=== PATIENT | male | born 1955 | race Caucasian/White ===

== ENCOUNTER → 2016-07-21 | Outpatient (REF) ==
[~2016-07-21] MED LIST: AMOXICILLIN 8751 TAB PO; EX-LAX15 MG; NORCO 325 MG-51 TAB PO; NORVASC 10MG10 MG PO; PRINVIL PO; PROCTOFOAM-HC 11 FOA RC
== END ==
LOC: ZLAB.WCH 11:59
DX: Z01.89 Encounter for other specified special examinations (principal)
CPT/HCPCS: G0103

== ENCOUNTER → 2017-04-13 | Outpatient (REF) | LOC: ZLAB.WCH 18:12 | DX: Z01.89 Encounter for other specified special examinations (principal) ==

== ENCOUNTER → 2017-04-26 | Outpatient (REF) ==
[2017-04-26 18:46] LABS: C-REACTIVE PROTEIN 5.9 mg/dL (0.0-0.9)
[2017-04-26 19:30] LABS: PSA-TOTAL 2.17 ng/mL (0-4)
== END ==
LOC: ZLAB.WCH 18:07
PROVIDERS: Nurse Practitioner Family
DX: Z01.89 Encounter for other specified special examinations (principal)
CPT/HCPCS: G0103

== ENCOUNTER → 2017-11-03 | Outpatient (REF) ==
[2017-11-03 18:12] LABS: AMMONIA < 9 umol/L (11-35)
== END ==
LOC: ZLAB.WCH 17:45
PROVIDERS: Internal Medicine
DX: Z01.89 Encounter for other specified special examinations (principal)

== ENCOUNTER → 2017-12-26 | Outpatient (CLI) | payer OTHER ==
[2005-11-15 13:42] VITALS: TEMP 97.1
[2017-12-26 15:39] LABS: BASO # 0.2 (0.0-0.2); BASO % 1.6 % (0.0-2.0); EOS # 0.1 (0.0-0.7); EOS % 0.4 % (0-4.0); GRAN # 8.7 (1.4-6.5); GRAN % 74.1 % (42.2-75.2); HEMATOCRIT 42.5 % (42.0-52.0); HEMOGLOBIN 14.7 g/dl (13.5-18.0); LYMPH % 8.6 % (20.0-51.0); MEAN CELL VOLUME 94 fl (80.0-100.0); MEAN CORPUSCULAR HEMOGLOBIN 33 pg (27.0-31.0); MEAN CORPUSCULAR HGB CONC 35 g/dl (33.0-37.0); MEAN PLATELET VOLUME 9.5 fl (7.4-10.4); MONO # 1.8 (0.1-0.6); MONO % 14.9 % (1.7-9.3); PLATELET COUNT 352 K/mm3 (130-400); REDCELL DISTRIBUTION WIDTH-CV 14.2 % (11.5-14.5)
[2017-12-26 15:43] LABS: INR 2.4 (0.8-3.0); PROTHROMBIN TIME 26.9 SECONDS (9.7-12.8)
[2017-12-26 15:53] LABS: ALBUMIN 3.9 gm/dL (3.5-5.0); BILIRUBIN,TOTAL 0.8 mg/dL (0.0-1.0); CALCIUM 9.7 mg/dL (8.4-10.2); CREATININE, serum 0.82 mg/dL (0.66-1.25); POTASSIUM 5.1 mmol/L (3.4-5.0)
== END ==
LOC: COL.LAB 15:17
PROVIDERS: Internal Medicine Gastroenterology
DX: I85.00 Esophageal varices without bleeding (principal)

== ENCOUNTER 2018-01-17 09:11 | Day surgery (SDC) | payer OTHER ==
[~2018-01-17] VITALS: Ht 180.3 cm; Wt 76.4 kg
[~2018-01-17 09:11] MED LIST changes: -NORVASC 10MG10 MG PO; +NORVASC 5MG5 MG/TAB PO
[2018-01-17] MEDS ORDERED: ULTRAM 50MG TAB50 MG PO (09:43)
[2018-01-17] MEDS ORDERED: ALDACTONE 100M100 MG PO (09:44)
[2018-01-17] MEDS ORDERED: XARELTO20 MG PO (09:44)
[2018-01-17] MEDS ORDERED: LASIX 20MG TABL20 MG PO (09:45)
[2018-01-17] MEDS ORDERED: FLOMAX 0.40.4 MG/CAP PO (09:46)
[2018-01-17] MEDS ORDERED: FOLIC ACID 11 MG/TA1 PO (09:46)
[2018-01-17] MEDS ORDERED: B COMPLEX #11 TAB PO (09:47)
[2018-01-17] MEDS ORDERED: MULTI VITAMINS1 TAB PO (09:47)
[2018-01-17 09:56] VITALS: BP 142/77; PULSE 79; TEMP 97.9
[2018-01-17 11:15] VITALS: BP 102/73; PULSE 68; TEMP 97.5
[2018-01-17 11:30] VITALS: BP 122/78; PULSE 69
[2018-01-17 11:45] VITALS: BP 124/57; PULSE 68
[2018-01-17 12:00] VITALS: BP 126/74; PULSE 68
== END 2018-01-17 12:15 | disposition home or self-care (01) ==
LOC: SDCO 09:11
DX: Z12.11 Encounter for screening for malignant neoplasm of colon (principal); Z80.0 Family history of malignant neoplasm of digestive organs; D12.5 Benign neoplasm of sigmoid colon; K57.30 Diverticulosis of large intestine without perforation or abscess without bleeding; K64.0 First degree hemorrhoids; I85.00 Esophageal varices without bleeding; K29.30 Chronic superficial gastritis without bleeding; K22.2 Esophageal obstruction; K21.9 Gastro-esophageal reflux disease without esophagitis; K44.9 Diaphragmatic hernia without obstruction or gangrene; K74.60 Unspecified cirrhosis of liver; K72.90 Hepatic failure, unspecified without coma; Z86.718 Personal history of other venous thrombosis and embolism; Z79.01 Long term (current) use of anticoagulants; Z79.899 Other long term (current) drug therapy; E78.00 Pure hypercholesterolemia, unspecified; Z72.89 Other problems related to lifestyle; Z90.81 Acquired absence of spleen; G62.9 Polyneuropathy, unspecified
CPT/HCPCS: J2704; J7030

== ENCOUNTER → 2018-07-07 | Outpatient (CLI) | payer OTHER ==
[~2018-07-07] MED LIST changes: +ALDACTONE 100M100 MG PO; +B COMPLEX #11 TAB PO; +FLOMAX 0.40.4 MG/CAP PO; +FOLIC ACID 11 MG/TA1 PO; +LASIX 20MG TABL20 MG PO; +MULTI VITAMINS1 TAB PO; +ULTRAM 50MG TAB50 MG PO; +XARELTO20 MG PO
[2018-07-07 09:00] LABS: BASO # 0.1 (0.0-0.2); BASO % 0.7 % (0.0-2.0); EOS # 0.1 (0.0-0.7); EOS % 1.1 % (0-4.0); GRAN # 8.1 (1.4-6.5); GRAN % 72.1 % (42.2-75.2); HEMOGLOBIN 12.5 g/dl (13.5-18.0); LYMPH # 1.8 (1.2-3.4); MEAN CELL VOLUME 87 fl (80.0-100.0); MEAN CORPUSCULAR HEMOGLOBIN 32 pg (27.0-31.0); MEAN CORPUSCULAR HGB CONC 37 g/dl (33.0-37.0); MEAN PLATELET VOLUME 10.4 fl (7.4-10.4); MONO # 1.1 (0.1-0.6); MONO % 9.8 % (1.7-9.3); PLATELET COUNT 251 K/mm3 (130-400); RED BLOOD COUNT 3.93 M/mm3 (4.20-5.60); REDCELL DISTRIBUTION WIDTH-CV 14.6 % (11.5-14.5)
[2018-07-07 09:07] LABS: BILIRUBIN,TOTAL 3.6 mg/dL (0.0-1.0); CALCIUM 8.3 mg/dL (8.4-10.2); CREATININE, serum 1.18 (0.66-1.25); POTASSIUM 3.9 mmol/L (3.4-5.0); TOTAL PROTEIN 6.9 gm/dL (6.4-8.2)
[2018-07-07 09:25] LABS: INR 3.6 (0.8-3.0); PROTHROMBIN TIME 41.5 SECONDS (9.7-12.8)
== END ==
LOC: COL.RAD 07-04 08:15 → COL.LAB 07:58
PROVIDERS: Internal Medicine Gastroenterology
DX: K70.31 Alcoholic cirrhosis of liver with ascites (principal)

== ENCOUNTER 2019-03-27 08:05 | Day surgery (SDC) | payer OTHER ==
[~2019-03-27] VITALS: Ht 182.9 cm; Wt 77.6 kg
[2019-03-27 08:42] VITALS: BP 127/66; PULSE 85; TEMP 97.7
[2019-03-27] MEDS ORDERED: LASIX 40MG TABL40 MG PO (08:59)
[2019-03-27] MEDS ORDERED: BENADRYL25 M2 PO (09:01)
[2019-03-27] MEDS ORDERED: PRILOSEC 20MG20 MG PO (09:02)
[2019-03-27] MEDS ORDERED: MELATONIN5 M1 SL (09:02)
[2019-03-27] MEDS ORDERED: MILK THISTLE PO (09:05)
--- NOTE | 2019-03-27 09:55 | NUR ---
Dr. Posada here and talks with the patient and procedure will be cancelled to due elevated alcohol level.
--- NOTE | 2019-03-27 10:00 | NUR ---
IV discontinued and patient dresses self. Ambulatory to the bathroom. Gait steady.
--- NOTE | 2019-03-27 10:10 | NUR ---
Voice mail left on spouse's cell phone that patient is ready to be picked up and that the procedure was cancelled.
--- NOTE | 2019-03-27 10:35 | NUR ---
Spouse here and patient dismissed ambulatory to home driven by spouse.
== END 2019-03-27 10:35 | disposition home or self-care (01) ==
LOC: SDCO 08:05
DX: K74.60 Unspecified cirrhosis of liver (principal); I85.10 Secondary esophageal varices without bleeding; Z86.010 Personal history of colon polyps; Z79.01 Long term (current) use of anticoagulants
CPT/HCPCS: J2704; J7030

== ENCOUNTER 2021-08-24 06:36 | Day surgery (SDC) | payer OTHER, MEDICARE ==
[~2021-08-24] VITALS: Ht 180.3 cm; Wt 88.4 kg
[~2021-08-24 06:36] MED LIST changes: +BENADRYL25 M2 PO; +LASIX 40MG TABL40 MG PO; +MELATONIN5 M1 SL; +MILK THISTLE PO; +NORVASC 10MG10 MG PO; -NORVASC 5MG5 MG/TAB PO; +PRILOSEC 20MG20 MG PO
[2021-08-24 07:25] VITALS: BP 137/63; PULSE 76; TEMP 98.2
[2021-08-24] MEDS ORDERED: FOLIC ACID 11 MG/TA1 PO (07:33)
[2021-08-24] MEDS ORDERED: NATURE'S BLEND100 M2 PO (07:33)
[2021-08-24] MEDS ORDERED: NATURAL IRON65 MG PO (07:34)
[2021-08-24] MEDS ORDERED: ATHLETE'S FOOT1% TP (07:34)
[2021-08-24 08:35] VITALS: BP 116/62; PULSE 58; TEMP 97.4
[2021-08-24 08:45] VITALS: BP 124/60; PULSE 59
[2021-08-24 09:00] VITALS: BP 132/67; PULSE 67
--- NOTE | 2021-08-24 09:25 | NUR ---
0859-Pt returned via cart to [facility] with SAI Bliss and bedside report obtained. VSS-see flowsheet. 0925-Pts present. Pt tolerated oral intake. VS remain stable. IV removed, pressure dressing applied. Pt dressed with wifes assistance. Discharge teaching completed, pt and pts verbalized understanding. Pt taken via wheelchair to private vehicle for dc home with driving.
== END 2021-08-24 09:25 | disposition home or self-care (01) ==
LOC: SDCO 06:36
DX: D12.3 Benign neoplasm of transverse colon (principal); K29.30 Chronic superficial gastritis without bleeding; K70.30 Alcoholic cirrhosis of liver without ascites; K44.9 Diaphragmatic hernia without obstruction or gangrene; K57.30 Diverticulosis of large intestine without perforation or abscess without bleeding; D50.9 Iron deficiency anemia, unspecified; I85.00 Esophageal varices without bleeding; Z79.899 Other long term (current) drug therapy; Z80.0 Family history of malignant neoplasm of digestive organs
CPT/HCPCS: J2704

== ENCOUNTER 2021-12-09 00:59 | Inpatient (IN) | payer OTHER, MEDICARE ==
[2021-12-09] VITALS (1020 sets, daily range): BP systolic 98–116; BP diastolic 51–66; PULSE 66–92; TEMP 98–98.9; O2SAT 53–100
[~2021-12-09] VITALS: Ht 180.3 cm; Wt 89.7 kg
[~2021-12-09 00:59] MED LIST changes: +ATHLETE'S FOOT1% TP; +NATURAL IRON65 MG PO; +NATURE'S BLEND100 M2 PO
[2021-12-09 01:31] LABS: HEMOGLOBIN 11.8 g/dl (13.5-18.0); MEAN CELL VOLUME 93 fl (80.0-100.0); MEAN CORPUSCULAR HEMOGLOBIN 31 pg (27-31); MEAN CORPUSCULAR HGB CONC 33 g/dl (33.0-37.0); MEAN PLATELET VOLUME 10.6 fl (7.4-10.4); PLATELET COUNT 372 K/mm3 (130-400); RED BLOOD COUNT 3.85 M/mm3 (4.20-5.60); REDCELL DISTRIBUTION WIDTH-CV 17.3 % (11.5-14.5)
[2021-12-09 01:36] LABS: HEMATOCRIT 35.8 % (42.0-52.0)
[2021-12-09 01:39] LABS: INR 1.6 (0.8-3.0)
[2021-12-09 01:41] LABS: PARTIAL THROMBOPLASTIN TIME 29.8 SECONDS (26.0-37.0)
[2021-12-09 01:49] LABS: ALBUMIN 2.8 gm/dL (3.4-4.8); C-REACTIVE PROTEIN 0.68 mg/dL (0.00-0.50); CALCIUM 11.3 mg/dL (8.4-10.2); CREATININE, serum 1.82 mg/dL (0.72-1.25); POTASSIUM 3.3 mmol/L (3.5-4.5); TOTAL PROTEIN 7.8 gm/dL (6.2-8.1)
[2021-12-09 01:56] LABS: ANISOCYTOSIS 1+; BAND 4 % (0-10); LYMPHOCYTE 9 % (20.0-51.0); NEUTROPHILS 79 % (42.0-75.2); PLATELET ESTIMATE NORMAL (NORMAL); TARGET CELLS 1+
[2021-12-09 01:57] LABS: HYPOCHROMIA 1+
[2021-12-09 01:58] LABS: BILIRUBIN,TOTAL 1.4 mg/dL (0.2-1.2)
--- NOTE | 2021-12-09 07:15 | NUR ---
Resting in bed; Reports feeling "much better today". VS stable and call light left within reach.
[2021-12-09 07:59] LABS: HEMOGLOBIN 8.6 g/dl (13.5-18.0)
[2021-12-09 08:06] LABS: CALCIUM 8.7 mg/dL (8.4-10.2); CREATININE, serum 1.58 mg/dL (0.72-1.25); POTASSIUM 4.2 mmol/L (3.5-4.5)
[2021-12-09 14:22] LABS: HEMATOCRIT 25.7 % (42.0-52.0); HEMOGLOBIN 8.4 g/dl (13.5-18.0)
--- NOTE | 2021-12-09 16:26 | NUR ---
Resting in bed with eyes shut; no concerns or complaints at this time.
--- NOTE | 2021-12-09 20:28 | NUR ---
ASSESSMENT COMPLETE AND CHARTED. PATIENT GIVEN PRN TRAMADOL FOR PAIN. DENIES OTHER NEEDS.CALL LIGHT IN REACH.
[2021-12-10] VITALS (1060 sets, daily range): BP systolic 113–135; BP diastolic 61–76; PULSE 60–67; TEMP 97.8–98.6; O2SAT 56–100
[2021-12-10 05:32] LABS: MEAN CELL VOLUME 95 fl (80.0-100.0); MEAN CORPUSCULAR HGB CONC 32 g/dl (33.0-37.0); MEAN PLATELET VOLUME 10.8 fl (7.4-10.4); RED BLOOD COUNT 2.59 M/mm3 (4.20-5.60); REDCELL DISTRIBUTION WIDTH-CV 17.9 % (11.5-14.5)
[2021-12-10 05:36] LABS: HEMATOCRIT 24.7 % (42.0-52.0); HEMOGLOBIN 7.9 g/dl (13.5-18.0); MEAN CORPUSCULAR HEMOGLOBIN 31 pg (27-31); PLATELET COUNT 256 K/mm3 (130-400)
--- NOTE | 2021-12-10 05:36 | NUR ---
PATIENT HAD UNEVENTFUL NIGHT. GIVEN TRAMADOL FOR FEET PAIN DURING NIGHT. DENIES OTHER NEEDS THIS AM. CALL LIGHT IN REACH.
[2021-12-10 05:52] LABS: CALCIUM 7.8 mg/dL (8.4-10.2); CREATININE, serum 1.11 mg/dL (0.72-1.25)
[2021-12-10 06:05] LABS: ANISOCYTOSIS 1+; BAND 2 % (0-10); BASOPHIL 2 % (0-2); EOSINOPHIL 3 % (0-4); LYMPHOCYTE 10 % (20.0-51.0); METAMYELOCYTE 1 % (0-0); NEUTROPHILS 64 % (42.0-75.2); PLATELET ESTIMATE NORMAL (NORMAL)
--- NOTE | 2021-12-10 07:18 | NUR ---
Report given to Ritika GIBBS
--- NOTE | 2021-12-10 07:41 | NUR ---
PT LYING IN BED, AWAKE AT SHIFT CHANGE. DENIES ANY NEEDS AT THIS TIME. NITRO GTT RUNNING PER JUN AND REPORT. CALL LIGHT WITHIN REACH.
--- NOTE | 2021-12-10 07:44 | NUR ---
PT LYING IN BED AT SHIFT CHANGE, ON , NEW BAG HUNG WITH NIGHTSHIFT. PT DENIES NEEDS AT THIS TIME. ASKED WHEN PHYSICIAN WOULD ROUND BUT NO FURTHER QUESTIONS. CALL LIGHT WITHIN REACH.
--- NOTE | 2021-12-10 10:03 | NUR ---
Initial visit; Patient thanked Clinical Pharmacologist for looking in on him and offering God's blessings for healing.
[2021-12-10 18:23] LABS: HEMATOCRIT 26.4 % (42.0-52.0); HEMOGLOBIN 8.6 g/dl (13.5-18.0)
--- NOTE | 2021-12-10 19:00 | NUR ---
PT ASSESSMENT COMPLETED. VSS. OCTREOTIDE RUNNING AT 50.1 AND REMAINS UNCHANGED AT SHIFT CHANGE. PT IS ALERT AND ORIENTED. PT VOIDED USING THE URINAL. DURING THIS TIME PT ACCIDENTLY PULLED IV OUT. OCTREOTIDE PUT ON STANDBY AND NEW SITE WILL BE ACCESSED. CALL LIGHT WITHIN REACH.
--- NOTE | 2021-12-10 20:30 | NUR ---
ATTEMPTED IV ACCESS ONE TIME. SCRUB TECHNICIAN ATTEMPTED ACCESS ONE TIME. CALLED CASING TESTER WHO ATTEMPTED ACCESS ONE TIME AND SUCCESSFULLY ACCESSED ON THE SECOND ATTEMPT. OCTREOTIDE RESUMED AT THIS TIME.
[2021-12-11] VITALS (347 sets, daily range): BP systolic 121–145; BP diastolic 63–98; PULSE 61–81; TEMP 98–98.5; O2SAT 75–100
--- NOTE | 2021-12-11 02:15 | NUR ---
PT GOT UP TO USE THE URINAL AND ACCIDENTALLY PULLED HIS IV OUT. PLACED A NEW IV LINE IN THE RIGHT WRIST. IV POLE MOVED TO PREVENT PULLING ON THE LINE.
--- NOTE | 2021-12-11 06:21 | NUR ---
DURING SHIFT PT HAD MISSED USING THE URINAL. URINE SATURATED HIS SWEAT PANTS HE HAD ON. PT ITEMS ARE IN A BAG - SWEAT PANTS, SOCKS, UNDERWEAR IN THE ROOM.
[2021-12-11 07:28] LABS: MEAN CELL VOLUME 95 fl (80.0-100.0); MEAN CORPUSCULAR HGB CONC 33 g/dl (33.0-37.0); MEAN PLATELET VOLUME 10.8 fl (7.4-10.4); PLATELET COUNT 269 K/mm3 (130-400); RED BLOOD COUNT 2.79 M/mm3 (4.20-5.60); REDCELL DISTRIBUTION WIDTH-CV 17.8 % (11.5-14.5)
[2021-12-11 07:37] LABS: HEMATOCRIT 26.4 % (42.0-52.0); HEMOGLOBIN 8.6 g/dl (13.5-18.0); MEAN CORPUSCULAR HEMOGLOBIN 31 pg (27-31)
--- NOTE | 2021-12-11 07:45 | NUR ---
PATIENT AWAKE AND RESTING IN BED. DENIES ANY CONCERNS AT THIS TIME. PATIENT IS ALERT AND ORIENTED HOWEVER IS FORGETFUL AT TIMES. CALL LIGHT WITHIN REACH AND REMINDED PATIENT TO PRESS CALL LIGHT WHEN HE NEEDS TO GET UP FOR THE RESTROOM.
[2021-12-11 07:54] LABS: ALBUMIN 2.4 gm/dL (3.4-4.8); BILIRUBIN,TOTAL 0.5 mg/dL (0.2-1.2); CALCIUM 7.9 mg/dL (8.4-10.2); CREATININE, serum 0.82 mg/dL (0.72-1.25); POTASSIUM 3.4 mmol/L (3.5-4.5); TOTAL PROTEIN 6.2 gm/dL (6.2-8.1)
[2021-12-11 08:34] LABS: EOSINOPHIL 2 % (0-4); LYMPHOCYTE 9 % (20.0-51.0); NEUTROPHILS 80 % (42.0-75.2)
[2021-12-11 08:37] LABS: ANISOCYTOSIS 1+; HYPOCHROMIA 1+; PLATELET ESTIMATE NORMAL (NORMAL)
[2021-12-11] MEDS ORDERED: PROTONIX 40MG T40 MG PO (09:50)
[2021-12-11] MEDS ORDERED: MAG-OX 400400 MG/TAB PO (09:50)
--- NOTE | 2021-12-11 12:47 | NUR ---
elementary school social worker met with patient to discuss discharge planning. Patient states that he lives with his and will return home upon discharge. Patient states he is independent with his activities of daily living and denies unmet needs. Patient states his primary care provider is Dr Travis and that he has made advance directives. Discharge plan to home with spouse.
--- NOTE | 2021-12-11 15:10 | NUR ---
GAVE PATIENT AND FAMILY MEMBER VERBAL AND WRITTEN DISCHARGE INSTRUCTIONS. DISCONTINUED PATIENTS IV IN RIGHT WRIST AND WAS INTACT UPON REMOVAL. PATIENT WAS ALERT AND ORIENTATED AND IN NO DISTRESS UPON DISCHARGE. ASSISTED OUT VIA WHEEL CHAIR WITH SPOUSE TO ER ENTRANCE.
== END 2021-12-11 15:10 | disposition home or self-care (01) | DRG 369 ==
LOC: COL.ER 00:59 → ICU 01:58
PROVIDERS: Emergency Medicine; Internal Medicine; Internal Medicine Gastroenterology; Student in an Organized Health Care Education/Training Program; ADMIT Internal Medicine
PROC: 0DC68ZZ Extirpation of Matter from Stomach, Via Natural or Artificial Opening Endoscopic (ICD-10-PCS; 2021-12-09)
PROC: 0W3P8ZZ Control Bleeding in Gastrointestinal Tract, Via Natural or Artificial Opening Endoscopic (ICD-10-PCS; principal; 2021-12-09 11:00)
DX: K22.6 Gastro-esophageal laceration-hemorrhage syndrome (principal); N17.9 Acute kidney failure, unspecified; R65.10 Systemic inflammatory response syndrome (SIRS) of non-infectious origin without acute organ dysfunction; I10 Essential (primary) hypertension; K70.30 Alcoholic cirrhosis of liver without ascites; D50.9 Iron deficiency anemia, unspecified; Z20.822 Contact with and (suspected) exposure to COVID-19; F10.10 Alcohol abuse, uncomplicated; R73.9 Hyperglycemia, unspecified; E87.6 Hypokalemia; E83.42 Hypomagnesemia; E87.8 Other disorders of electrolyte and fluid balance, not elsewhere classified; I95.9 Hypotension, unspecified; K44.9 Diaphragmatic hernia without obstruction or gangrene; K22.2 Esophageal obstruction; K21.9 Gastro-esophageal reflux disease without esophagitis; G62.9 Polyneuropathy, unspecified; G89.29 Other chronic pain; N40.0 Benign prostatic hyperplasia without lower urinary tract symptoms; Z23 Encounter for immunization; Z86.718 Personal history of other venous thrombosis and embolism; Z72.89 Other problems related to lifestyle; Z79.82 Long term (current) use of aspirin
CPT/HCPCS: C9113; J0696; J1200; J2354; J2405; J2550; J2704; J3010; J3411; J3475; J3480; J7030; J7040

== ENCOUNTER 2022-07-12 12:07 | Day surgery (SDC) | payer MEDICARE, OTHER ==
[~2022-07-12] VITALS: Ht 181.6 cm; Wt 84.1 kg
[~2022-07-12 12:07] MED LIST changes: +MAG-OX 400400 MG/TAB PO; +PROTONIX 40MG T40 MG PO
[2022-07-12] MEDS ORDERED: LASIX 40MG TABL40 MG PO (13:12)
[2022-07-12] MEDS ORDERED: MELATONIN5 M1 SL (13:15)
[2022-07-12 14:29] VITALS: BP 115/57; PULSE 76; TEMP 98.3
[2022-07-12] MEDS ORDERED: NORCO 325 MG-51 TAB PO (15:32)
[2022-07-12 16:00] VITALS: BP 121/47; PULSE 74; TEMP 98.5
--- NOTE | 2022-07-12 16:00 | NUR ---
1600 PATIENT RETURNS TO ROOM 1 VIA CART. PATIENT IS ALERT AND ORIENTED. RESPIRATIONS EVEN AND UNLABORED. PATIENT ON 2 LPM VIA NC. VITAL SIGNS OBTAINED. PATIENT IS IN ROOM. PATIENT HAS 4X4 WITH MEDIPORE TO INCISION SITE ON ABDOMEN, CDI. PATIENT REQUESTED WATER. NO DIFFICULTIES SWALLOWING. PATIENT IS NOT C/O ANY PAIN AT THIS TIME. 1618 THIS NURSE DISCONTINUED IV FROM RIGHT FOREARM WITH NO DIFFICULTIES. 1620 THIS NURSE REVIEWED DISCHARGE INSTRUCTIONS WITH PATIENT AND PATIENT . BOTH VERBALIZED UNDERSTANDING. 1640 PATIENT DISCHARGES FROM UNIT VIA WHEELCHAIR IN STABLE CONDITION.
[2022-07-12 16:15] VITALS: BP 122/51; PULSE 75
[2022-07-12 16:30] VITALS: BP 118/54; PULSE 74
== END 2022-07-12 16:40 | disposition home or self-care (01) ==
LOC: SDCO 12:07
DX: K42.9 Umbilical hernia without obstruction or gangrene (principal); K70.31 Alcoholic cirrhosis of liver with ascites; I85.00 Esophageal varices without bleeding; K21.9 Gastro-esophageal reflux disease without esophagitis; Z79.899 Other long term (current) drug therapy
CPT/HCPCS: C1781; J2405; J2704; J3010; J7120

== ENCOUNTER 2023-12-12 11:13 | Emergency (ER) | payer MEDICARE, OTHER ==
[~2023-12-12] VITALS: Ht 180.3 cm; Wt 81.8 kg
[~2023-12-12 11:13] MED LIST changes: +ALDACTONE50 MG PO
[2023-12-12 11:21] VITALS: TEMP 98.3
[2023-12-12] MEDS ORDERED: Morphine 10 MG/ML VIAL IM ONE (12:15)
[2023-12-12] MEDS ORDERED: PERCOCET 325 MG1 TA2 PO (13:33)
[2023-12-12 13:43] VITALS: BP 149/72; PULSE 73
== END 2023-12-12 13:43 | disposition home or self-care (01) ==
LOC: COL.ER 11:13
DX: S22.41XA Multiple fractures of ribs, right side, initial encounter for closed fracture (principal); W01.0XXA Fall on same level from slipping, tripping and stumbling without subsequent striking against object, initial encounter
CPT/HCPCS: A9284; J2270